=== PATIENT | male | born 1955 | race Caucasian/White ===

== ENCOUNTER 2019-03-10 08:08 | Inpatient (IN) | payer OTHER ==
--- NOTE | 2019-03-10 06:05 | PDHPUP ---
History & Physical Update H&P update statement: This history and physical update is based on an assessment of the patient which was completed after admission or registration (within 24 hours), but prior to the surgery/procedure. H&P update: H&P reviewed & patient examined, no change in patient's condition since H&P completed
[~2019-03-10 08:08] MED LIST: ROPIVACAINE 0.2% 80 MG, EPINEPHrine 0.2 MG, KETOROLAC TROMETHAMINE 30 MG in SYRINGE 0 ML IU ONE; TRANEXAMIC ACID 3,000 MG in NS (SYRINGE) 50 ML IRR ONE; TRANEXAMIC ACID 3,000 MG/50 ML BAG IRR ONE
[2019-03-10] MEDS ORDERED: ACETAMINOPHEN 325 MG TAB PO ONE (08:46)
[2019-03-10] MEDS ORDERED: DEXAMETHASONE 4 MG/ML VIAL IVP ONE (08:46)
[2019-03-10] MEDS ORDERED: FAMOTIDINE 20 MG TAB PO ONE (08:46)
[2019-03-10] MEDS ORDERED: ceFAZolin 2 GM/DEXTROSE 100 ML IV ONE (08:46)
[2019-03-10] MEDS ORDERED: LR 1,000 ML IV ONE (08:48)
[2019-03-10] MEDS ORDERED: LIDOCAINE 1% 2 ML INJ ID PRN (08:48)
[2019-03-10] MEDS ORDERED: MIDAZOLAM 2 MG/2 ML VIAL ONE (09:57)
[2019-03-10] MEDS ORDERED: MIDAZOLAM 2 MG/2 ML VIAL IVP ONE (10:00)
[2019-03-10] MEDS ORDERED: NALOXONE HCL 0.4 MG/ML INJ IVP PRN (10:00)
[2019-03-10] MEDS ORDERED: PROMETHAZINE HCL 25 MG/ML INJ IVP PRN ×2 (10:00→11:28)
[2019-03-10] MEDS ORDERED: HYDROmorphONE/DILAUDID 1 MG/ML INJ IVP PRN (10:00)
[2019-03-10] MEDS ORDERED: ONDANSETRON 4 MG/2 ML VIAL IVP PRN ×2 (10:00→11:28)
[2019-03-10] MEDS ORDERED: oxyCODONE IR 5 MG TAB PO PRN (10:00)
[2019-03-10] MEDS ORDERED: ALBUTEROL 3 ML DEYVIAL IH PRN (10:00)
[2019-03-10] MEDS ORDERED: PROPOFOL/EMULSION 500 MG/50 ML BOTTLE IV ONE (10:03)
[2019-03-10] MEDS ORDERED: fentaNYL 100 MCG/2 ML INJ ONE ×2 (11:01→11:52)
--- NOTE | 2019-03-10 11:24 | PDANEPAE ---
ANE History of Present Illness R MEME ANE Past Medical History - Cardiovascular History Hx Hypertension: No Hx Arrhythmias: No Hx Chest Pain: No Hx Coronary Artery / Peripheral Vascular Disease: No Hx CHF / Valvular Disease: No Hx Palpitations: No - Pulmonary History Hx COPD: No Hx Asthma/Reactive Airway Disease: No Hx Recent Upper Respiratory Infection: No Hx Oxygen in Use at Home: No Hx Sleep Apnea: No Sleep Apnea Screening Result - Last Documented: Positive Pulmonary History Comment: SHANNA triggers - Neurologic History Hx Cerebrovascular Accident: No Hx Seizures: No Hx Dementia: No - Endocrine History Hx Diabetes: No - Liver History Hx Hepatic Disorders: No - Neurological & Psychiatric Hx Hx Neurological and Psychiatric Disorders: No - Cancer History Hx Cancer: No - Congenital Disorder History Hx Congenital Disorders: No - GI History Hx Gastrointestinal Disorders: No - Other Health History Other Health History: none - Chronic Pain History Chronic Pain: Yes (right knee) - Surgical History Prior Surgeries: none in last 5 yrs. hemorroidectomy. meniscus repair. colonoscopy ANE Review of Systems Review of Systems: - Exercise capacity METS (RN): 4 METS ANE Patient History - Allergies Allergies/Adverse Reactions: No Known Allergies Allergy (Verified 03/10/19 08:57) - Home Medications Home Medications: Acetaminophen [Tylenol 325mg (*)] 325 mg PO Q6 PRN 02/24/19 [Last Taken 03/04/19 ] Multivitamins [Multivitamin (*)] 1 each PO DAILY 02/24/19 [Last Taken 03/04/19] - NPO status NPO Since - Liquids (Date): 03/10/19 NPO Since - Liquids (Time): 07:00 NPO Since - Solids (Date): 03/09/19 NPO Since - Solids (Time): 20:00 - Smoking Hx Smoking Status: Current every day smoker - Family Anes Hx Family Hx Anesthesia Complications: none ANE Labs/Vital Signs - Vital Signs Blood Pressure: 158/94 Heart Rate: 59 Respiratory Rate: 16 O2 Sat (%): 96 Height: 179.07 cm Weight: 73.482 kg ANE Physical Exam - Airway Neck exam: FROM Mallampati Score: Class 2 Mouth exam: normal dental/mouth exam - Pulmonary Pulmonary: clear to auscultation - Cardiovascular Cardiovascular: regular rate and rhythym - ASA Status ASA Status: I ANE Anesthesia Plan Anesthesia Plan: spinal
[2019-03-10] MEDS ORDERED: ONDANSETRON DISINTEGRATING 4 MG TAB PO PRN (11:28)
[2019-03-10] MEDS ORDERED: PROMETHAZINE HCL 25 MG SUPPR PR PRN (11:28)
[2019-03-10] MEDS ORDERED: MAGNESIUM HYDROXIDE 30 ML UDCUP PO PRN (11:28)
[2019-03-10] MEDS ORDERED: diphenhydrAMINE 25 MG CAP PO PRN (11:28)
[2019-03-10] MEDS ORDERED: TEMAZEPAM 15 MG CAP PO PRN (11:28)
[2019-03-10] MEDS ORDERED: DIPHENOXYLATE/ATROPINE LOMOTIL 1 TAB PO PRN (11:28)
[2019-03-10] MEDS ORDERED: METOCLOPRAMIDE 10 MG/2 ML VIAL IVP PRN (11:28)
[2019-03-10] MEDS ORDERED: LACTULOSE 20 GM/30 ML UDCUP PO PRN (11:28)
[2019-03-10] MEDS ORDERED: POLYETHYLENE GLYCOL 3350 17 GM PKT PO PRN (11:28)
[2019-03-10] MEDS ORDERED: BISACODYL 10 MG SUPP PR PRN (11:28)
[2019-03-10] MEDS ORDERED: CYCLOBENZAPRINE 10 MG TAB PO PRN (11:28)
--- NOTE | 2019-03-10 11:28 | POSTOPPROG ---
Post Op Note Date of Operation: 03/10/19 Surgeon: Alexandro Arriaga Home Specialist: Davina VELASQUEZ Anesthesiologist: Dr. Wilian Macdonald Anesthesia: Spinal Pre-op Diagnosis: Right hip OA Post-op Diagnosis: same Indication: right hip pain Procedure: RTHA Findings: severe OA of right hip Inf/Abcess present in the surg proc area at time of surgery?: No EBL: 50-100
[2019-03-10] MEDS ORDERED: LR 1,000 ML IV SCH (11:30)
--- NOTE | 2019-03-10 11:41 | POSTANESTH ---
Post Anesthetic Evaluation Cardiovascular Status: Normal, Stable Respiratory Status: Normal, Stable Level of Consciousness/Mental Status: Can Participate in Eval, Mildly Sleepy, Arousable Pain Control: Adequate, Prn Tx Ordered Nausea/Vomiting Control: Adequate, Prn Tx Ordered Complications Possibly Related to Anesthesia: None Noted
[2019-03-10] MEDS: fentaNYL 100 MCG/2 ML INJ IVP PRN ×2 (11:54→12:14)
[2019-03-10] MEDS ORDERED: HYDROmorphONE/DILAUDID 1 MG/ML INJ ONE (12:25)
--- NOTE | 2019-03-10 13:47 | PDMN ---
Medical Necessity Medical necessity: [facility] IP only surgery; cpt 99739 R MEME
[2019-03-10] MEDS: oxyCODONE IR 5 MG TAB PO PRN ×3 (14:14→20:11)
--- NOTE | 2019-03-10 14:45 | SOAPPROG ---
SOAP Progress Note Assessment/Plan: Assessment: 63 year old male s/p right anterior MEME - procedure earlier today Doing well Plan: Begin d/c planning - likely going home tomorrow, will have support from and friends Continue PT - WBAT, anterior total hip precautions Continue oral pain medication - oxycodone, tylenol, celebrex, flexeril Continue VTE ppx - aspirin 81 mg BID, SCDs, LINNEA villarreal Subjective: Patient states he is doing well, pain is tolerable at this time. He still notes some numbness in his legs/feet. He is planning on going home tomorrow and will have the support of his and friends. He denies SOB, CP, fever, chills. Objective: Vital Signs Temp Pulse Resp BP Pulse Ox 36.4 C 59 L 16 113/89 H 96 03/10/19 13:23 03/10/19 13:23 03/10/19 13:23 03/10/19 13:23 03/10/19 13:23 03/09/19 03/10/19 03/11/19 05:59 05:59 05:59 Intake Total 1000 Output Total 200 Balance 800 Patient resting in bed, no acute distress. RLE: Edema noted about the anterolateral aspect of the hip. Wound dressings are clean, dry and intact. Lower leg compartments are soft and nontender. He can actively DF and PF his right foot and great toe against resistance. He notes some numbness in the right and left foot secondary to spinal anesthesia/nerve block, otherwise grossly NVI distally. ICD10 Worksheet Patient Problems: Problems Problem Status Onset Unilateral primary osteoarthritis, right hip Acute
[2019-03-10] MEDS: ACETAMINOPHEN 325 MG TAB PO SCH ×2 (18:20→23:24)
[2019-03-10] MEDS: ceFAZolin 2 GM/DEXTROSE 100 ML IV SCH (18:21)
[2019-03-10] MEDS: SENNOSIDES/DOCUSATE SODIUM TAB PO SCH (20:11)
[2019-03-10] MEDS: ASPIRIN 81 MG CHEWABLE TAB PO SCH (20:11)
[2019-03-10] MEDS: FAMOTIDINE 20 MG TAB PO SCH (20:12)
[2019-03-11] MEDS: ceFAZolin 2 GM/DEXTROSE 100 ML IV SCH (02:17)
[2019-03-11] MEDS: ACETAMINOPHEN 325 MG TAB PO SCH ×2 (06:11→11:49)
[2019-03-11] MEDS: oxyCODONE IR 5 MG TAB PO PRN ×2 (06:18→11:49)
--- NOTE | 2019-03-11 07:23 | SOAPPROG ---
SOAP Progress Note Assessment/Plan: Assessment: 63 year old male s/p right anterior EMME - POD 1 Doing well Anemia - expected initially post-op, asymptomatic, continue to monitor Plan: Continue d/c planning - patient doing better than expected; likely going home today will have support from and friends Continue PT - WBAT, anterior total hip precautions. Patient will need to be cleared by PT prior to d/c Continue oral pain medication - oxycodone, tylenol, celebrex, flexeril Continue VTE ppx - aspirin 81 mg BID, SCDs, LINNEA villarreal Subjective: Patient states he is doing well, pain is tolerable. He feels well enough to go home today. He denies SOB, CP, fever, chills. Objective: Vital Signs Temp Pulse Resp BP Pulse Ox 37.0 C 68 18 106/57 L 92 03/11/19 04:50 03/11/19 04:50 03/11/19 04:50 03/11/19 04:50 03/11/19 04:50 Laboratory Results 03/11/19 04:56 03/10/19 03/11/19 03/12/19 05:59 05:59 05:59 Intake Total 2534 Output Total 2200 Balance 334 Patient resting in bed, no acute distress. RLE: Wound dressings on the anterior aspect of the hip are clean, dry and intact. Mild diffuse edema about the anterolateral hip. Lower leg compartments are soft and nontender. He can actively DF and PF his right foot and great toe against resistance. Grossly NVI distally. ICD10 Worksheet Patient Problems: Problems Problem Status Onset Unilateral primary osteoarthritis, right hip Acute
[2019-03-11] MEDS: FAMOTIDINE 20 MG TAB PO SCH (08:27)
[2019-03-11] MEDS: ASPIRIN 81 MG CHEWABLE TAB PO SCH (08:27)
[2019-03-11] MEDS: SENNOSIDES/DOCUSATE SODIUM TAB PO SCH (08:27)
[2019-03-11 08:35] VITALS: BP 114/66
--- NOTE | 2019-03-11 08:46 | PDDCSUM ---
Discharge Summary Discharge Summary: ADMISSION DIAGNOSIS: Right hip severe degenerative arthritis DISCHARGE DIAGNOSIS: Right hip severe degenerative arthritis OPERATION PERFORMED: March 10, 2019 Right total hip arthroplasty, anterior approach POSTOPERATIVE COMPLICATIONS: None CONDITION ON DISCHARGE: Improved HPI: The patient is a 63 year old male who has end-stage arthritis of his right hip. Clinical and radiographic features are consistent with this. Patient has failed attempts at conservative management, therefore, recommended operative right total hip replacement. DESCRIPTION OF HOSPITAL COURSE: The patient was admitted to the hospital on the morning of surgery and underwent a right total hip arthroplasty, anterior approach. Postoperatively, patient was treated with multimodal DVT prophylaxis, including aspirin 81 mg, SCDs and LINNEA hose. Patient was seen by PT and made good progress with ambulation and stairs. On the first post-operative day the patients H&H was 12.1/33.6. Patient was able to void spontaneously. On POD 1 patient was doing better than expected and was discharged. At the time of discharge, patient was afebrile, wound was clean and dry. Patient is walking with a walker. DISPOSITION: The patient is discharged home with the support of his and friends. He may begin outpatient PT in approximately 3 weeks. Patient may progress to full weightbearing on the right lower extremity as tolerated. LINNEA stockings for 2 weeks during the daytime. Aspirin 81 mg BID for 4 weeks. Patient has prescriptions for Celebrex, oxycodone, flexeril for pain control and muscle spasms. The patient will be seen by Dr. Dasilva office in approximately 3 weeks. If there are any problems, patient is to call Dr. Dasilva office.
--- NOTE | 2019-03-11 09:41 | GOP ---
[f rep st] OPERATIVE REPORT DATE OF OPERATION: 03/10/2019 SURGEON: Forest Arriaga MD PLAYGROUND EQUIPMENT ERECTOR: Claudia Keller PA-C. ANESTHESIA: Spinal. PREOPERATIVE DIAGNOSIS: Right hip osteoarthritis. POSTOPERATIVE DIAGNOSIS: Right hip osteoarthritis. PROCEDURE PERFORMED: Total hip arthroplasty with x-ray. FINDINGS: ESTIMATED BLOOD LOSS: 200 cc. INDICATIONS: The patient has progressively worsening arthritis of the hip which has failed medical m anagement. The patient understands the treatment options including continued non-operative care and has selected surgical intervention. The patient has decided to undergo total hip arthroplasty via th e direct anterior approach, understanding the risks of the procedure including, but not limited to, n eurovascular injury, infection, persistent pain, component wear and loosening, deep venous thrombosis , pulmonary embolism, limb length inequality, hip instability (including dislocation), and intra-oper ative fractures. DESCRIPTION OF PROCEDURE: After proper identification of the patient including verification and jose miguel ing the surgical site, the patient was brought to the operating room and placed in the supine positio n. All bony prominences were well padded. Anesthesia was induced without complication and intraveno us prophylactic antibiotics were administered prior to skin incision. The operative leg was placed in the Trumpf Arch table extension and the well leg in a Yellofin leg ho lder. The patient was prepped and draped in the usual sterile fashion. The C-arm was draped for int ra-operative fluoroscopy to check acetabular position, femoral component position including leg lengt h and femoral offset. Attention was then drawn to surgical exposure of the hip. An incision was made with a #10 Bard Catron r blade starting 3 cm lateral and 3 cm distal to the anterior superior iliac spine measuring 8-10 cm and coursing distally toward the greater trochanter. The skin and subcutaneous tissues were divided sharply down to the fascia mookie. The fascia mookie was incised in line with the skin incision exposing the underlying tensor fascia mookie muscle. The muscle was bluntly elevated from the fascia and the f irst extracapsular Cobra retractor was placed laterally at the junction of the superior femoral neck and greater trochanter. The lateral femoral circumflex vessels were identified, cauterized, and divi ded with the Aquamantys bipolar cautery. The deep investing fascia of the TFL was divided to allow p tessy mobilization of the muscle preventing damage during the retraction. The reflected head of the rectus femoris muscle was elevated off the anterior hip capsule and a medial Cobra retractor was plac ed just proximal to the lesser trochanter. The anterior capsulotomy was made sharply from the superolateral acetabulum to the saddle junction of the superior femoral neck and greater trochanter, then coursing inferomedial towards the lesser troc hanter. The retractors were then placed in the intracapsular position for femoral neck osteotomy. C orresponding to pre-operative templating, the osteotomy was made with the oscillating saw carefully p rotecting the greater trochanter and soft tissues. The femoral head was removed from the acetabulum with a corkscrew and confirmed to be severely arthritic with exposed bone, deformity and osteophytes. Similar findings were confirmed in the acetabulum. The Arch table extension was then placed in 40 degrees external rotation. Attention was then drawn to the acetabular preparation. After placement of the anterior and posterio r Cobra retractors outside the labrum and intracapsular, the circumferential labrum was removed sharp ly. The foveal contents were then removed and hemostasis obtained with cautery. The first reamer selected was sized using the removed femoral head. Reaming began with medialization and then commenced in 2 mm increments at 45 degrees of abduction and 15 degrees of anteversion using fluoroscopic navigation. Reaming ceased 1 mm less than the definitive acetabular component and rickey esponded to the pre-operative templating. The final acetabular component was inserted using fluorosc opy to achieve proper orientation yielding excellent purchase and stability in the acetabulum. The f inal acetabular liner was then placed and its seating confirmed. Attention was then turned to the femur. The Arch table extension was placed in extension and adducti on, delivering the osteotomized femoral neck into the wound. A 2-pronged femoral elevator was placed at the calcar and another at the tip of the greater trochanter. The posterolateral capsule was rele ased with cautery allowing mobilization of the femur lateral and anterior for preparation. The exter nal rotators were visualized and preserved. A curette and rongeur were used to open the starting poi nt for broaching. Serial broaching started with the #0 broach and ended with the broach that exhibit ed excellent fit in the proximal femur. A change in pitch during mallet strikes was accompanied by t he inability to advance the broach any further. The trial reduction was performed and fluoroscopic n avigation was utilized to check limb length. Adjustments were made to equalize limb length according ly. After the final trials were accepted they were removed and the wound was copiously lavaged. The femo ral component was seated to the same depth as the final broach and the femoral head was impacted onto the clean trunnion. The hip was then reduced for the final time and once more fluoroscopy was used to check that limb length equality was achieved. The wound was irrigated and closed in layers, the fascia mookie with 2-0 Quill, the subcutaneous tissue with 2-0 Quill, and the skin with Dermabond. Sterile dressings were applied. Final sharps and spon ge counts were accurate. The patient was then transferred to a hospital bed and brought to the [facility] room in stable condition. IMPLANTS: Accolade II size 6 at 127, acetabular component a Trident II 56 mm 36 mm. Head is a Biolox Delta 36 mm, -5. /[id number]/MODL
--- NOTE | 2019-03-11 10:13 | ASMTLACE ---
LACE Length of stay for Answers: 1 day current admission Acuity / Level of Answers: Yes Care: Did the patient have an inpatient admission? Comorbidities - select Answers: Other Notes: elevated cholesterol all that apply # of Emergency department Answers: 0 visits in the last 6 months Score: 5 Date Signed: 03/11/2019 10:12 AM Electronically Signed By:ROBERT Corbin
--- NOTE | 2019-03-11 11:45 | ASMTCMCOM ---
CM Note CM Note Notes: Pt had planned OA of hip, resides with spouse. PT rec home/outpatient. MD rec outpatient. Pt will consult MD office for outpatient PT referral. Pt to transport home. Pt declines follow up appointment scheduled with [facility] PCP Neal. No CM d/c needs identified. Date Signed: 03/11/2019 11:44 AM Electronically Signed By:ROBERT Corbin
== END 2019-03-11 12:25 | disposition home or self-care (01) | DRG 470 ==
LOC: F3N 08:09
PROVIDERS: ADMIT Orthopaedic Surgery; ATTEND Orthopaedic Surgery
PROC: 0SR904A Replacement of Right Hip Joint with Ceramic on Polyethylene Synthetic Substitute, Uncemented, Open Approach (ICD-10-PCS; principal; 2019-03-10 10:00)
DX: M16.11 Unilateral primary osteoarthritis, right hip (principal); K21.9 Gastro-esophageal reflux disease without esophagitis; E78.5 Hyperlipidemia, unspecified; D64.9 Anemia, unspecified; G47.33 Obstructive sleep apnea (adult) (pediatric); Z72.0 Tobacco use
CPT/HCPCS: 97116-GP; 97161-GP; 97165-GO; J0171; J0690; J1100; J1170; J1885; J2250; J2704; J2795; J3010